=== PATIENT | female | born 1980 | race Caucasian/White ===

== ENCOUNTER 2022-07-28 15:42 | Outpatient (REF) | payer BC, MEDICAID, SELFPAY ==
--- NOTE | ~2022-07-28 | XR_ITS ---
EXAMINATION: LUMBAR SPINE AND SACROILIAC JOINT X-RAYS CLINICAL INFORMATION: Pain COMPARISON: None TECHNIQUE: 7 views of the lumbar of the lumbar spine including flexion and extension and bilateral oblique views and 3 views of the sacroiliac joints FINDINGS: Lumbar spine: Bone alignment is normal. No instability is seen on flexion-extension views. No fracture or dislocation. Normal disc spaces. No pars defect. Mild facet arthritis bilaterally at L5-S1. Sacroiliac joints: No fracture or dislocation. Normal-appearing sacroiliac joints. No evidence of proliferative or erosive sacroiliitis or ankylosis. XR/XR lumbar spine 6V w bending IMPRESSION: Mild bilateral L5-S1 facet arthritis. Otherwise unremarkable exam.
--- NOTE | ~2022-07-28 | XR_ITS ---
EXAMINATION: LUMBAR SPINE AND SACROILIAC JOINT X-RAYS CLINICAL INFORMATION: Pain COMPARISON: None TECHNIQUE: 7 views of the lumbar of the lumbar spine including flexion and extension and bilateral oblique views and 3 views of the sacroiliac joints FINDINGS: Lumbar spine: Bone alignment is normal. No instability is seen on flexion-extension views. No fracture or dislocation. Normal disc spaces. No pars defect. Mild facet arthritis bilaterally at L5-S1. Sacroiliac joints: No fracture or dislocation. Normal-appearing sacroiliac joints. No evidence of proliferative or erosive sacroiliitis or ankylosis. XR/XR sacroiliac joint min 3V IMPRESSION: Mild bilateral L5-S1 facet arthritis. Otherwise unremarkable exam.
== END 2022-07-28 15:43 | disposition home or self-care (01) ==
LOC: HO.XRAY 15:42
PROVIDERS: PCP Internal Medicine; Visit Provider Nurse Practitioner Family
DX: M51.36 Other intervertebral disc degeneration, lumbar region (principal); M47.26 Other spondylosis with radiculopathy, lumbar region
CPT/HCPCS: 72114; 72202